=== PATIENT | male | born 1970 | race Caucasian/White ===

== ENCOUNTER 2017-01-19 08:18 | Day surgery (SDC) | payer OTHER ==
[2017-01-17 12:11] VITALS: BMI 21.2
[~2017-01-19 08:18] MED LIST: DEXAMETHASONE SOD PHOSPHATE 10 MG/ML 1 ML VIAL IV ONE; DEXAMETHASONE SOD PHOSPHATE 4 MG/ML 1 ML VIAL IV ONE; FAMOTIDINE 20 MG/2 ML VIAL IV ONE; HYDROmorphone 1 MG/ML 1 ML SYRINGE IVP PRN; LACTATED RINGERS 1,000 ML IV SCH; MIDAZOLAM 2 MG/2 ML VIAL IV PRN; ONDANSETRON 4 MG/2 ML VIAL IVP ONE; ceFAZolin 1,000 MG in DEXTROSE/WATER 1 50ML.BAG IV ONE
[2017-01-19] MEDS: OXYMETAZOLINE 0.05% NASL SPRAY 15 ML NASAL ONE ×5 (08:45→09:05)
[2017-01-19] MEDS ORDERED: LIDOCAINE 1% 20 ML VIAL (10MG/ML) FOR IV START INTRADERMA ONE (08:45)
[2017-01-19] MEDS ORDERED: LIDOCAINE 1% INJ 10MG/ML (20 ML MDV) ONE (09:28)
[2017-01-19] MEDS ORDERED: GLYCOPYRROLATE 0.2 MG/ML 2 ML VIAL ONE (09:28)
[2017-01-19] MEDS ORDERED: MIDAZOLAM 2 MG/2 ML VIAL ONE (09:28)
[2017-01-19] MEDS ORDERED: PROPOFOL 10 MG/ML 20 ML VIAL IV ONE (09:28)
[2017-01-19] MEDS ORDERED: SUCCINYLCHOLINE CHLORIDE 100 MG/5 ML SYR IV ONE (09:28)
[2017-01-19] MEDS ORDERED: DEXAMETHASONE SOD PHOS (MDV) 100 MG/10 ML VIAL ONE (09:28)
[2017-01-19] MEDS ORDERED: fentaNYL (PF) 50 MCG/ML 2 ML AMP ONE (09:28)
[2017-01-19] MEDS ORDERED: ONDANSETRON 4 MG/2 ML VIAL ONE (09:28)
[2017-01-19] MEDS ORDERED: BACITRACIN 500 UNIT/GM OINT 28.4 GM TUBE TOPICAL ONE (09:44)
[2017-01-19] MEDS ORDERED: LIDOCAINE 1%-EPI 1:100,000 20 ML VIAL SUBMUCOSAL ONE ×2 (09:45)
--- NOTE | 2017-01-19 10:18 | P.OP ---
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 He has not improved with medical management. Operative Findings: Nasal septum deviated to the left including the columella as well as an inferior septal spur and then deviated to the right posteriorly and superiorly. Inferior turbinate hypertrophy bilaterally. Small approximate 7 mm cyst superior tip of the middle turbinate Description of Procedure: The patient was brought in the operative suite and placed in a supine position. The patient underwent induction of general anesthesia with oral endotracheal intubation without difficulty. The patient was prepped and draped in usual aseptic fashion. Orbits were in the operating field for monitoring throughout the case. 1% lidocaine with 1 100,000 epinephrine was infused submucosally both sides nasal septum as well as the anterior tip of the left middle turbinate. While this is taking vasoconstrictive effect the inferior turbinates were infractured with [place] elevator partial submucous resection of the inferior turbinates using the Coblation wand was then performed ablating a portion of the inferior turbinate soft tissue. They were then outfractured with the [place] elevator. A left hemitransfixion incision was then made with the mucoperichondrial mucoperiosteal flap on the left elevated. Bony cartilaginous junction was disarticulated and the mucoperiosteal flap on the right was elevated. Bony nasal septal deformity was removed with Darren forceps. An inferior cartilaginous strip was removed leaving a full 1.5 cm caudal strut. Checking intranasally this corrected nasal septal deformity and the hemitransfixion incision was closed with a running 4-0 chromic suture. 0 endoscopic examination was performed bilaterally. Proceeding on the left the cyst at the tip of the anterior middle turbinate on the left was removed with a biting Blakesley forceps removing this entirely. Hemostasis was noted to be good spontaneously. Bilateral Haji airway splints coated bacitracin ointment were placed in nasal cavities and sutured trans-septally with a 4-0 nylon suture. Patient was suctioned in oral gastric fashion. The patient allowed to emerge from general anesthesia having tolerated procedure well was extubated in the the operating suite and transferred postoperative recovery area satisfactory condition.
[2017-01-19 10:25] VITALS: TEMP 97.2
[2017-01-19 10:36] VITALS: RESP 16
[2017-01-19] MEDS ORDERED: HYDROcodone/APAP 7.5-325MG 1 EACH TAB PO ONE (11:13)
[2017-01-19 11:43] VITALS: BP 138/84; PULSE 45
== END 2017-01-19 12:32 | disposition home or self-care (01) ==
LOC: OR 08:18
PROVIDERS: ATTEND Otolaryngology
DX: J34.2 Deviated nasal septum (principal); J34.3 Hypertrophy of nasal turbinates; J34.1 Cyst and mucocele of nose and nasal sinus; G47.30 Sleep apnea, unspecified; J34.89 Other specified disorders of nose and nasal sinuses
CPT/HCPCS: 88305; 88300; 30520; 30140; 31240; J2250; J1100 ×2; J2405; J2001; J3010; J0690; J0330; J2704